=== PATIENT | female | born 1985 | race Caucasian/White ===

== ENCOUNTER 2016-12-21 11:04 | Emergency (ER) ==
[2016-12-21 11:27] LABS: URINE SOURCE CLEAN CATCH
[2016-12-21 12:01] LABS: BILIRUBIN URINE 1+ (NEGATIVE); BLOOD URINE 1+ (NEGATIVE); CLARITY SL. CLOUDY (CLEAR); COLOR YELLOW; GLUCOSE URINE NEGATIVE (NEGATIVE); LEUKOCYTES URINE 2+ (NEGATIVE); NITRITE URINE POSITIVE (NEGATIVE); PH URINE 6.5; PROTEIN URINE 1+(30 mg/dL) mg/dL (NEGATIVE)
[2016-12-21] MEDS ORDERED: XYLOCAINE-MPF 1% INJ ONE (12:18)
[2016-12-21] MEDS ORDERED: ROCEPHIN IM ONE (12:18)
[2016-12-21 12:29] LABS: URINE CULTURE PL NEEDED? YES; URINE EPITHELIAL CELLS >10 /HPF (<10); URINE WBC 20-40 /HPF (<10); UROBILINOGEN URINE 3+(8 mg/dL)
--- NOTE | 2016-12-21 12:29 | PROVIDER DOCUMENTATION ---
HPI-Female /OB/Breast - General Source: reports: patient - History of Present Illness-Female /OB Does patient report she is ?: No Location of complaint: reports: vaginal Radiation: reports: none Quality of Pain: reports: aching Severity in ED: reports: mild Onset/Duration: reports: 2 days ago Timing: reports: still present Context/Activities at Onset: reports: light activity Vaginal Symptoms: reports: discharge, foul odor Vaginal Bleeding Amount: None Urinary Symptoms: reports: no symptoms Related Symptoms: reports: no symptoms Leakage of Fluid: none Sexual intercourse history: reports: Single Partner Contraception: reports: none Modifying Factors: improves with: nothing Associated Symptoms: reports: denies symptoms Similar Symptoms Previously?: Yes Recently seen or treated by another doctor?: No <Kiarra Sarah - Last Filed: 12/21/16 12:24> <Megan Casanova - Last Filed: 12/21/16 12:40> - General Chief Complaint: UTI Symptoms Stated Complaint: WEAKNESS/COUGH Time Seen by Provider: 12/21/16 11:57 Allergies/Adverse Reactions: Patient Allergies Allergy/AdvReac Type Severity Reaction Status Date / Time No Known Allergies Allergy Verified 05/08/14 16:30 Home Medications: Home Medication List Medication Instructions Recorded Confirmed Last Taken Type Sulfamethoxazole/Trimethoprim 1 each PO BID #14 tablet 12/21/16 Unknown Rx [Bactrim Ds Tablet] - History of Present Illness-Female /OB Nature of Presenting Problem: Pt is 31 y/o F presents to the ED with UTI like symptoms. Pt denies burning with urination. Pt states boyfriend recently had sex with someone else and might have an STI. Pt states being fatigued. (Kiarra Sarah) Review of Systems - Adult - REVIEW OF SYSTEMS - ADULT Constitutional: reports: no symptoms reported Eyes: reports: no symptoms reported Ears, Nose, Mouth & Throat: reports: no symptoms reported Cardiovascular: reports: no symptoms reported Respiratory: reports: no symptoms reported Gastrointestinal: reports: no symptoms reported Genitourinary: denies: dysuria, flank pain, hematuria Musculoskeletal: reports: no symptoms reported Integumentary: reports: no symptoms reported Neurological: reports: no symptoms reported Psychiatric: reports: no symptoms reported Endocrine: reports: no symptoms reported Hematologic/Lymphatic: reports: no symptoms reported Allergic/Immunologic: reports: no symptoms reported All Other Systems: Reviewed and Negative <Kiarra Sarah - Last Filed: 12/21/16 12:24> Past History - Adult - PAST MEDICAL HISTORY-ADULT Review of Records: reports: Nursing Assessment Review, Medications Reviewed, Social history reviewed & non-contributory. Major Childhood Illnesses: reports: denies history Cardiovascular: reports: denies history Respiratory: reports: denies history Gastrointestinal: reports: denies history Obstetrical/Gynecological: reports: denies history Genitourinary: reports: denies history Musculoskeletal: reports: denies history Neurological: reports: denies history Psychiatric: reports: denies history Endocrine/Immune: reports: denies history Other Conditions: reports: denies history - PRIOR SURGERIES/PROCEDURES Surgical/Procedure History: reports: BTL - PRIOR HOSPITALIZATIONS Prior Hospitalizations: reports: none - IMMUNIZATION STATUS Childhood Immunizations: See Nurse Assessment Flu Vaccine: See Nurse Assessment - FAMILY HISTORY Family History: reviewed, not pertinent - SOCIAL HISTORY Smoking: cigarettes, less than 1 pack/day Provider spent 3-5 mins advising pt. on dangers of tobacco.: discussed smoking cessation Substance Use: denies Living Situation: family <Kiarra Sarah - Last Filed: 12/21/16 12:24> Physical Exam-General - PHYSICAL EXAM-ADULT Initial Vital Signs Reviewed: Yes - CONSTITUTIONAL General Appearance: appears well, alert, no apparent distress - EYES Eyes: PERRL/EOMI, pink conjunctivae, fundi clear, no AV nicking - HEAD, EARS, NOSE, MOUTH & THROAT HENMT: normocephalic/atraumatic, moist mucous membranes, normal ENT inspection, TMs normal, pharynx normal - NECK Neck: non-tender, full range of motion, supple, normal inspection - RESPIRATORY Respiratory: chest non-tender, lungs clear, normal breath sounds, no pleuratic chest pain, no respiratory distress, no accessory muscle use - CARDIOVASCULAR Cardiovascular: normal peripheral pulses, regular rate, rhythm, no edema, no gallop, no JVD, no murmur - GASTROINTESTINAL (ABDOMEN) Abdominal Exam: normal bowel sounds, non tender, soft, no organomegaly, no pulsatile mass - LYMPHATIC Lymphatic: no adenopathy - MUSCULOSKELETAL Back Exam: normal inspection, no CVA tenderness, no vertebral tenderness Extremity: normal range of motion, non-tender, normal gait, normal inspection, no pedal edema, no calf tenderness, normal capillary refill - SKIN Integumentary: normal color, normal turgor, warm/dry - NEUROLOGIC Neurologic: grossly normal - PSYCHIATRIC Psych/Mental Status: normal mood/affect, oriented x 3 <Kiarra Sarah - Last Filed: 12/21/16 12:24> Progress <Kiarra Sarah - Last Filed: 12/21/16 12:24> <Megan Casanova - Last Filed: 12/21/16 12:40> - PLAN OF CARE/RESULTS Progress/Plan/Lab Results: Laboratory Tests 12/21/16 11:15 Urine Source CLEAN CATCH Urine Color YELLOW Urine Clarity SL. CLOUDY A Urine pH 6.5 Ur Specific [place] 1.020 Urine Protein 1+(30 mg/dL) A Urine Ketones 2+(Moderate) A Urine Blood 1+ A Urine Nitrite POSITIVE A Urine Bilirubin 1+ A Urine WBC 2+ A Urine Glucose NEGATIVE Orders Category Date Time Status ED: Urine Bedside ORDERED Care 12/21/16 11:[address] W/POSS RFLX CULT [URINALYSIS] Stat Lab 12/21/16 11:15 Results CefTRIAXONE [Rocephin] Med 12/21/16 12:18 Discontinued 1 gm IM NOW ONE Lidocaine 1% Pf [Xylocaine-Mpf 1%] Med 12/21/16 12:18 Discontinued 5 ml INJ NOW ONE Vital Signs - 24 hr 12/21/16 11:10 Temperature 99.8 F H Pulse Rate 83 Respiratory 18 Rate Blood Pressure 134/79 O2 Sat by Pulse 99 Oximetry (Kiarra Sarah) The lab called and reports trichomonos in the urine. Discussed results and plan of care with patient. Patient agrees with plan and verbalizes understanding. Vital Signs Temp Pulse Resp BP Pulse Ox 12/21/16 11:10 99.8 F H 83 18 134/79 99 No Known Allergies Allergy (Verified 05/08/14 16:30) No Home Medications 12/21/16 Laboratory 12/21/16 11:15 Urine Source CLEAN CATCH Urine Color YELLOW Urine Clarity SL. CLOUDY A Urine pH 6.5 Ur Specific [place] 1.020 Urine Protein 1+(30 mg/dL) A Urine Ketones 2+(Moderate) A Urine Blood 1+ A Urine Nitrite POSITIVE A Urine Bilirubin 1+ A Urine Urobilinogen 3+(8 mg/dL) Urine Microscopic RBC 10-20 A Urine WBC 2+ A Urine Microscopic WBC 20-40 A Ur Epithelial Cells >10 A Urine Bacteria 2+ Urine Glucose NEGATIVE Orders Category Date Time Status ED: Urine Bedside ORDERED Care 12/21/16 11:[address] W/POSS RFLX CULT [URINALYSIS] Stat Lab 12/21/16 11:15 Completed URINE CULTURE [RM] Routine Lab 12/21/16 12:29 Ordered CefTRIAXONE [Rocephin] Med 12/21/16 12:18 Discontinued 1 gm IM NOW ONE Lidocaine 1% Pf [Xylocaine-Mpf 1%] Med 12/21/16 12:18 Discontinued 5 ml INJ NOW ONE Metronidazole [Flagyl] Med 12/21/16 12:36 Discontinued 2,000 mg PO NOW ONE Laboratory Tests 12/21/16 11:15 Urine Source CLEAN CATCH Urine Color YELLOW Urine Clarity SL. CLOUDY A Urine pH 6.5 Ur Specific [place] 1.020 Urine Protein 1+(30 mg/dL) A Urine Ketones 2+(Moderate) A Urine Blood 1+ A Urine Nitrite POSITIVE A Urine Bilirubin 1+ A Urine Urobilinogen 3+(8 mg/dL) Urine Microscopic RBC 10-20 A Urine WBC 2+ A Urine Microscopic WBC 20-40 A Ur Epithelial Cells >10 A Urine Bacteria 2+ Urine Glucose NEGATIVE (Megan Casanova) Departure <Kiarra Sarah - Last Filed: 12/21/16 12:24> - Departure Time of Disposition Order: 12:38 Certified Medical Emergency: Emergent <Megan Casanova - Last Filed: 12/21/16 12:40> - Departure DIAGNOSIS: Trichomonosis UTI (urinary tract infection) Qualifiers: Urinary tract infection type: acute cystitis Hematuria presence: without hematuria Qualified Code(s): N30.00 - Acute cystitis without hematuria Disposition: HOME 01 Condition: Stable Additional Instructions: Follow up with primary care physician Take medications as directed Drink plenty of water Do not have intercourse until your partner is treated also or you will get infected again Return to ED for any concerns or worsening of symptoms ED Follow Up Instructions: You have been treated by a care provider in the Emergency Department. These instructions are being provided to you so you can have an understanding of how to care for yourself upon discharge. Upon discharge from the Emergency Department, you are responsible for making arrangements for follow-up care by a physician of your choice. Take all prescribed medications as directed. Return to the Emergency Department immediately for any new or worsening symptoms. You may call the Physician Referral phone number at [phone] to obtain a list of Physicians who are taking new patients. Prescriptions: Sulfamethoxazole/Trimethoprim [Bactrim Ds Tablet] 1 each PO BID #14 tablet Attestation - Scribe Verification/Attestation Scribe:: Kiarra Sarah Acting as Scribe for:: Megan Casanova Scribe documention review:: This chart was documented by a scribe and accurately reflects the service the provider performed and the decisions made by the provider. <Kiarra Sarah - Last Filed: 12/21/16 12:24> - Physician/ ARSLAN Attestation Patient care was provided by Advanced Practice Provider:: Yes Advanced Practice Provider:: Megan Casanova Advanced Practice Provider documentation review:: The Mid-level provider documentation, treatment plan and medical decision making was reviewed by the physician who agrees with all treatment and medical decision making by the P. <Megan Casanova - Last Filed: 12/21/16 12:40> Physician Attestation
[2016-12-21] MEDS ORDERED: FLAGYL PO ONE (12:36)
[2016-12-21] MEDS ORDERED: FLAGYL ONE (12:41)
[2016-12-21 12:45] VITALS: BP 125/83
== END 2016-12-21 12:51 | disposition home or self-care (01) ==
LOC: P.ED 11:04
DX: N30.00 Acute cystitis without hematuria (principal); A59.9 Trichomoniasis, unspecified; R05 Cough; R53.1 Weakness; R30.9 Painful micturition, unspecified; R53.83 Other fatigue; F17.210 Nicotine dependence, cigarettes, uncomplicated; Z71.6 Tobacco abuse counseling
CPT/HCPCS: 81001; 87088; J0696